=== PATIENT | male | born 1960 | race Asian ===

== ENCOUNTER 2020-04-22 10:10 | Inpatient (IN) | payer MEDICARE ==
[~2020-04-22] VITALS: Ht 170.2 cm; Wt 60.3 kg
--- NOTE | 2020-04-22 10:15 | NUR ---
leanne, from [facility], missed dialysis friday, covid 19 +. vs checked. stable. seen by
--- NOTE | 2020-04-22 10:20 | NUR ---
iv access started. blood draw done. sent to lab.
--- NOTE | 2020-04-22 10:50 | NUR ---
cobid swab done sent to lab
[2020-04-22 10:52] LABS: BASOPHILS # (AUTO) 0.1 /CMM (0.0-0.2); BASOPHILS % (AUTO) 1.3 % (0.0-2.0); HEMATOCRIT 36 % (39-51); HEMOGLOBIN 11.6 g/dL (13.5-17.5); LYMPHOCYTES # (AUTO) 1.2 /CMM (0.8-4.8); LYMPHOCYTES % (AUTO) 21.7 % (20.0-44.0); MEAN CORPUSCULAR HGB CONC 32 g/dl (31.0-36.0); MEAN CORPUSCULAR VOLUME 99 fL (80-96); MONOCYTES # (AUTO) 0.6 /CMM (0.1-1.30); MONOCYTES % (AUTO) 10.1 % (2.0-12.0); NEUTROPHILS # (AUTO) 3.7 /CMM (1.8-8.9); NEUTROPHILS % (AUTO) 65.9 % (43.0-81.0); PLATELET COUNT (AUTO) 131 /CMM (150-450); RED BLOOD CELL COUNT(AUTO) 3.63 MIL/uL (4.5-6.0); WHITE BLOOD COUNT (AUTO) 5.7 K/uL (4.3-11.0)
[2020-04-22 10:54] LABS: CREATININE 4.8 mg/dL (0.6-1.3); POTASSIUM 4.2 mmol/L (3.5-5.1)
--- NOTE | 2020-04-22 10:57 | NUR ---
MOVE SHEET SUBMITTED AND CALLED FOR BED.
--- NOTE | 2020-04-22 11:22 | NUR ---
[facility] CALLED MACHINE HEEL BUILDER PAGED ITS DR. SMITH.
[2020-04-22] MEDS ORDERED: ASPI-1169 PO (11:31)
[2020-04-22] MEDS ORDERED: QUET25TA PO (11:31)
[2020-04-22] MEDS ORDERED: INSU100V42 (11:31)
[2020-04-22] MEDS ORDERED: PANT40TA2 PO (11:31)
[2020-04-22] MEDS ORDERED: LOSA50TA39 PO (11:31)
[2020-04-22] MEDS ORDERED: ACET325T53 PO (11:31)
[2020-04-22] MEDS ORDERED: ATOR40TA PO (11:31)
[2020-04-22] MEDS ORDERED: FURO-144 PO (11:31)
[2020-04-22] MEDS ORDERED: ASCO500C17 PO (11:31)
[2020-04-22] MEDS ORDERED: DOCU-141 PO (11:31)
[2020-04-22] MEDS ORDERED: METO50TA16 PO (11:31)
--- NOTE | 2020-04-22 11:37 | NUR ---
CALLED ELEONORA ZIMMER ABOUT PT NEEDING DIALYSIS AFTER BEING DC.
--- NOTE | 2020-04-22 11:42 | NUR ---
received bed assignment 116-1
--- NOTE | 2020-04-22 12:15 | NUR ---
report given to jaye martinez at [facility] for aubrey. pt will go to 116
[2020-04-22] MEDS ORDERED: MAGNESIUM HYDROXIDE 30 ML UDC PO PRN (12:30)
[2020-04-22] MEDS ORDERED: ACETAMINOPHEN 325 MG TABLET PO PRN (12:30)
[2020-04-22] MEDS ORDERED: MAG HYDROX/AL HYDROX/SIMETH 30 ML UDC PO PRN (12:30)
[2020-04-22] MEDS ORDERED: ONDANSETRON HCL/PF 4 MG/2 ML VIAL IVP PRN (12:30)
[2020-04-22] MEDS ORDERED: Z GUARD REMEDY 2 OZ OINT TP PRN (12:30)
[2020-04-22] MEDS ORDERED: HEPARIN SODIUM, PORCINE 5000 UNITS/1 ML VIAL SQ SCH ×2 (12:30→17:54)
--- NOTE | 2020-04-22 12:45 | NUR ---
transferred to room 116
[2020-04-22 13:30] VITALS: BP 129/76
--- NOTE | 2020-04-22 13:45 | NUR ---
NAPHTHA WASHING SYSTEM OPERATOR NOTES [facility] 2 PERSON ASSIST. 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 PT TOLERATING RA, WITH NO RESPIRATORY DISTRESS NOTED. PT DENIES ANY PAIN OR DISCOMFORT AT THIS TIME. RIGHT UPPER CHEST PERMACATH NOTED FOR HD ACCESS. 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 PT HOOKED TO TELEMONITORING WITH NSR HR 66. PIV TO RFA G20 SL, FLUSHED WITH NS, INTACT AND OPERATIONAL. SKIN ASSESSED, PICTURES TAKEN AND FILED IN THE CHART. DRY SKIN AND PEELING TO BOTH FEET NOTED, OTHERWISE INTACT. RIGHT BIG TOE AMPUTATED LAST 2008, REPORTED BY PT. ADMISSION INFORMATION AND HISTORY PROVIDED BY PATIENT. PT ORIENTED TO THE STAFFS AND ROOM. CALL LIGHT KEPT WITHIN REACH. PT'S BED IN LOWEST, LOCKED POSITION WITH SRX3. WILL CONTINUE PLAN OF CARE.
[2020-04-22 13:49] LABS: C-REACTIVE PROTEIN 3.1 mg/dL (0.0-0.9)
[2020-04-22] MEDS: DOCUSATE SODIUM 100 MG CAPSULE PO SCH (18:21)
[2020-04-22] MEDS: METOPROLOL TARTRATE 50 MG TABLET PO SCH (18:21)
--- NOTE | 2020-04-22 19:13 | NUR ---
RN NOTES PT REMAINS IN BED, GRBURKEY, A/OX4. PT TOLERATING RA, WITH NO RESPIRATORY DISTRESS NOTED. PT DENIES ANY PAIN OR DISCOMFORT AT THIS TIME. RIGHT UPPER CHEST PERMACATH NOTED FOR HD ACCESS. 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 ON TELEMONITORING WITH NSR HR 69. PIV TO RFA G20 SL, FLUSHED WITH NS, INTACT AND OPERATIONAL. ALL NEEDS AND CARE ATTENDED. CALL LIGHT KEPT WITHIN REACH. PT'S BED IN LOWEST, LOCKED POSITION WITH SRX3. ENDORSED TO STORE DELI MANAGER NURSE FOR UPCOMING HD.
--- NOTE | 2020-04-22 19:30 | NUR ---
RN NOTE RECEIVED PATIENT ASLEEP IN BED, ON SEMI GALDAMEZ'S, AOX4. PATIENT IN NO S/SX OF ACUTE DISTRESS AT THIS TIME. PATIENT'S BREATHING IS EVEN AND UNLABORED. PATIENT ON ROOM AIR, SATURATING AT >95%. PATIENT ON TELE MONITOR READING SINUS RHYTHM, HR IS 73. NOTED IV SITE RFA 20G, PATENT AND FLUSHING WELL, AND PERMACATH AT R CHEST WALL, DRESSING INTACT, NO S/S OF INFECTION NOTED. NOTED POST OPERATIVE WOUND DRESSING AT MID-CHEST WALL DRY AND INTACT. PATIENT. PATIENT IS AMBULATORY WITH ASSIST, WITH URINAL AT BEDSIDE. SAFETY MEASURES IMPLEMENTED PER PROTOCOL. PATIENT BED ALARM IS ON. HEAD OF BED ELEVATED. BED IS LOCKED, IN LOWEST POSITION AND SIDE RAILS UP. CALL LIGHT WITHIN REACH OF THE PATIENT. APPLICABLE ISOLATION PRECAUTIONS IN PLACE. WILL CONTINUE TO MONITOR AND REASSESS FOR ANY CHANGES.
[2020-04-22 20:00] VITALS: BP 128/74
--- NOTE | 2020-04-22 20:00 | NUR ---
RN NOTE HD STARTED WITH HD RN AT BEDSIDE WITH STABLE VS, BP 128/74, T 97.9, P 73, R 16, O2 SAT 100%. WILL CONTINUE TO MONITOR
[2020-04-22 21:15] VITALS: BP 128/74
[2020-04-22] MEDS ORDERED: ATORVASTATIN 40 MG TABLET PO SCH (22:00)
[2020-04-22] MEDS ORDERED: QUETIAPINE FUMARATE 25 MG TABLET PO SCH (22:00)
--- NOTE | 2020-04-22 22:30 | NUR ---
RN NOTE END OF HD SESSION, NOTED 1000 ML OUTPUT. VS STABLE BP 128/71, T 98.0, P79, R 20, O2 SAT 96%. NO SIGN OF DISTRESS NOTED. PATIENT KEPT COMFORTABLE. APPROPRIATE ISOLATION PRECAUTION MAINTAINED. WILL CONTINUE TO MONITOR.
[2020-04-23] VITALS: BP 113/67
[2020-04-23] MEDS ORDERED: INSULIN REGULAR, HUMAN 100 UNIT/ML 3 ML VIAL SQ PRN (00:30)
[2020-04-23] MEDS ORDERED: DEXTROSE 50%-WATER 50 ML DISP.SYRIN IV PRN (00:30)
[2020-04-23] MEDS ORDERED: *INSULIN REGULAR(HUMULIN R)HUM 100 UNIT/ML VIAL SQ PRN (00:30)
[2020-04-23 04:00] VITALS: BP 140/70
[2020-04-23] MEDS ORDERED: BLOOD SUGAR DIAGNOSTIC 1 EACH STRIP VI SCH (07:30)
--- NOTE | 2020-04-23 07:30 | NUR ---
RN NOTE RECEIVED PATIENT ASLEEP IN BED RESTING COMFORTABLY IN MODERATE HIGH BACK REST, AOX4. PATIENT IN NO S/SX OF ACUTE DISTRESS AT THIS TIME. ON ROOM AIR, TOLERATING WELL. PATIENT ON TELE MONITOR READING SINUS RHYTHM, HR IS 70'S. NOTED IV SITE RFA 20G, PATENT AND FLUSHING WELL, AND PERMACATH AT R CHEST WALL, DRESSING INTACT, NO S/S OF INFECTION NOTED. NOTED POST OPERATIVE WOUND DRESSING AT MID-CHEST WALL DRY AND INTACT. SAFETY MEASURES IN PLACE, BED IS LOCKED, IN LOWEST POSITION AND SIDE RAILS UP. CALL LIGHT WITHIN REACH OF THE PATIENT. WILL CONT TO MONITOR.
[2020-04-23 08:00] VITALS: BP 138/60
[2020-04-23 08:04] LABS: BASOPHILS % (AUTO) 0.8 % (0.0-2.0); EOSINOPHILS % (AUTO) 0.3 % (0.0-6.0); HEMATOCRIT 35 % (39-51); HEMOGLOBIN 11.6 g/dL (13.5-17.5); LYMPHOCYTES # (AUTO) 1.1 /CMM (0.8-4.8); LYMPHOCYTES % (AUTO) 28.5 % (20.0-44.0); MEAN CORPUSCULAR HGB CONC 33 g/dl (31.0-36.0); MEAN CORPUSCULAR VOLUME 97 fL (80-96); MONOCYTES # (AUTO) 0.5 /CMM (0.1-1.30); MONOCYTES % (AUTO) 14.2 % (2.0-12.0); NEUTROPHILS # (AUTO) 2.1 /CMM (1.8-8.9); NEUTROPHILS % (AUTO) 56.2 % (43.0-81.0); PLATELET COUNT (AUTO) 100 /CMM (150-450); WHITE BLOOD COUNT (AUTO) 3.7 K/uL (4.3-11.0)
[2020-04-23 08:32] VITALS: BP 138/60
[2020-04-23] MEDS: DOCUSATE SODIUM 100 MG CAPSULE PO SCH (08:32)
[2020-04-23] MEDS: METOPROLOL TARTRATE 50 MG TABLET PO SCH (08:32)
[2020-04-23] MEDS ORDERED: HEPARIN SODIUM, PORCINE 5000 UNITS/1 ML VIAL SQ SCH (09:00)
[2020-04-23] MEDS ORDERED: PANTOPRAZOLE 40 MG TABLET.DR PO SCH (09:00)
[2020-04-23] MEDS ORDERED: ASCORBIC ACID 500 MG TABLET PO SCH (09:00)
[2020-04-23] MEDS ORDERED: ASPIRIN 81 MG TAB.CHEW PO SCH (09:00)
[2020-04-23] MEDS ORDERED: LOSARTAN POTASSIUM 50 MG TABLET PO SCH (09:00)
--- NOTE | 2020-04-23 09:41 | NUR ---
RN NOTES PATIENT REFUSED HEPARIN SQ, ALSO, PATIENT PLATELET IS 100, LOW.
[2020-04-23 10:00] LABS: THYROID STIMULATING HORMONE 3.904 uIU/mL (0.358-3.74)
[2020-04-23 10:28] LABS: ALBUMIN 3.3 g/dL (3.4-5.0); BILIRUBIN,TOTAL 0.8 mg/dL (0.2-1.0); CREATININE 3.7 mg/dL (0.6-1.3); MAGNESIUM 1.7 mg/dL (1.8-2.4); PHOSPHORUS 2.8 mg/dL (2.5-4.9); POTASSIUM 3.7 mmol/L (3.5-5.1)
[2020-04-23] MEDS ORDERED: Magnesium 1GM/D5W 100ML PREMIX 100 ML IV SCH (11:00)
--- NOTE | 2020-04-23 11:10 | NUR ---
dr. peters made aware patient being discharge soon ,clarified iv mg replacement per md lozano to give po mg as ordered if iv replacement not completed.primary rn made aware.
[2020-04-23] MEDS ORDERED: MAGNESIUM OXIDE 400 MG TABLET PO ONE (11:30)
--- NOTE | 2020-04-23 12:20 | NUR ---
FLATWORK CATCHER NOTES PATIENT DISCHARGED IN STABLE CONDITION. A/O X3. ABLE TO MAKE NEEDS KNOWN. V/S TAKEN, STABLE AND RECORDED. IV ACCESS REMOVED AND APPLIED PRESSURE DRESSINGS. ADMITTED YESTERDAY, PICTURES ON CHART. NO CHANGES. NAME ARM BAND REMOVED. ALL BELONGINGS CHECKED AND SIGNED. HEALTH TEACHINGS/DISCHARGED INSTRUCTIONS GIVEN TO PATIENT, VERBALIZED UNDERSTANDING, REPORT GIVEN TO [facility], PATIENT GOING TO ROOM 43C, PATIENT LEFT UNIT VIA GURNEY, WITH NO SIGNS OF DISTRESS NOTED, ACCOMPANIED BY 2 AMBULANCE STAFF, MADE AWARE OF ISOLATION PRECAUTION, CHARGE NURSE AWARE OF DISCHARGED.
== END 2020-04-23 12:20 | DRG 280 ==
LOC: ER 10:10 → MEDSG1 13:20 → TELE1 13:34
PROVIDERS: ADMIT Internal Medicine; ATTEND Internal Medicine
PROC: 5A1D70Z Performance of Urinary Filtration, Intermittent, Less than 6 Hours Per Day (ICD-10-PCS; principal; 2020-04-22)
DX: I21.4 Non-ST elevation (NSTEMI) myocardial infarction (principal); U07.1 COVID-19; N18.6 End stage renal disease; J12.89 Other viral pneumonia; I12.0 Hypertensive chronic kidney disease with stage 5 chronic kidney disease or end stage renal disease; E11.22 Type 2 diabetes mellitus with diabetic chronic kidney disease; Z99.2 Dependence on renal dialysis; Z79.4 Long term (current) use of insulin; Z79.82 Long term (current) use of aspirin; D63.8 Anemia in other chronic diseases classified elsewhere; Z95.1 Presence of aortocoronary bypass graft; I25.10 Atherosclerotic heart disease of native coronary artery without angina pectoris; M89.9 Disorder of bone, unspecified; H54.7 Unspecified visual loss; E87.70 Fluid overload, unspecified
CPT/HCPCS: 36415; 71045-TC; 80048-TC; 80053-TC; 80061-TC; 82728-TC; 83735-TC; 84100-TC; 84443-TC; 84484-TC; 85025-TC; 86140-TC; 87081-TC; 90935-TC; C9803; G0378; J1644; J3475